=== PATIENT | female | born 1975 | race Caucasian/White ===

== ENCOUNTER 2016-06-11 09:35 | Emergency (ER) | payer SELFPAY ==
--- NOTE | ~2016-06-11 | EKG ---
PATIENT: PRATEEK HERNANDEZ UNIT #: [id number] Ventricular Rate: 69 BPM Atrial Rate: 69 BPM P-R Interval: 134 ms QRS Duration: 74 ms Q-T Interval: 390 ms QTC Calculation(Bezet): 417 ms P [place]: 39 degrees Calculated R [place]: 56 degrees Calculated T [place]: 34 degrees Diagnosis Line: Normal sinus rhythm with sinus arrhythmia Diagnosis Line: Normal ECG Diagnosis Line: No previous ECGs available Diagnosis Line: Confirmed by MARIE MCMILLAN MD ([id number]) on 06/13/2016 Diagnosis Line: 5:35:46 PM INTERPRETING MD: DEYANIRA HANSON
--- NOTE | ~2016-06-11 | CR72 ---
[facility]. [facility] A Service of [facility] & [facility] RADIOLOGY TEXT RESULTS PATIENT: PRATEEK HERNANDEZ LOCATION: SED : 79 UNIT #: [id number] AGE: [address]: Juan Pablo Mesa MD SEX: F ORDER DR: [id number] [address] [address] [id number] E MR#: [id number] Acc #: [id number] NAME: PRATEEK HERNANDEZ : 1975 SEX: F STUDY DATE/TIME: 06/11/2016 9:23 UNIT: SED ROOM: STUDY DESCRIPTION: CR Chest Single View Portable Attending Physician: Juan Pablo Mesa M.D. Ordering Physician: Juan Pablo Mesa M.D. MEDICAL IMAGING REPORT This report is preliminary unless electronic signature is present. EXAM Portable chest. HISTORY Chest pain, 2 weeks, going into left shoulder. FINDINGS A portable view of the chest was obtained. The heart size and vascularity are normal, and the lungs are clear. The bones are unremarkable. IMPRESSION No active disease. Dictated by... Paddy Dennis M.D. THIS IS AN ELECTRONICALLY VERIFIED REPORT Paddy Dennis M.D. at 06/11/2016 4:54 PM Itz TD: 06/11/2016 12:46 JOB #: [id number] MEDICAL IMAGING REPORT
[~2016-06-11 09:35] MED LIST: NO MEDICATIONS
[2016-06-20] MEDS ORDERED: MOTRIN IB200 M1 PO (12:31)
== END 2016-06-11 09:56 | disposition home or self-care (01) ==
LOC: SED 09:35
DX: M25.512 Pain in left shoulder (principal); R20.9 Unspecified disturbances of skin sensation; Z90.49 Acquired absence of other specified parts of digestive tract; Z98.51 Tubal ligation status
CPT/HCPCS: 71010; 93005; 96372; 99283; J1885

== ENCOUNTER 2016-06-20 12:59 | Emergency (ER) | payer SELFPAY ==
--- NOTE | ~2016-06-20 | CR229 ---
[facility]. [facility] A Service of [facility] & [facility] RADIOLOGY TEXT RESULTS PATIENT: PRATEEK HERNANDEZ LOCATION: SED : 79 UNIT #: [id number] AGE: [address]: Sushila Puri APRN SEX: F ORDER DR: [id number] [place] [id number] E MR#: [id number] Acc #: [id number] NAME: PRATEEK HERNANDEZ : 1975 SEX: F STUDY DATE/TIME: 06/20/2016 12:55 UNIT: SED ROOM: STUDY DESCRIPTION: CR Shoulder Min 2 View Lt Attending Physician: Sushila Puri A.P.R.N. Referring Physician: Sushila Puri A.P.R.N. Ordering Physician: Sushila Puri A.P.R.N. Primary Care Physician: No Primary Care Physician MEDICAL IMAGING REPORT This report is preliminary unless electronic signature is present. EXAM Left shoulder 3 views 06/20/2016 INDICATIONS 40-year-old female with left shoulder pain for 3 weeks. No injury. COMPARISON STUDIES No comparisons. FINDINGS There is no fracture or dislocation. Joint spaces are preserved. Soft tissue structures are unremarkable. IMPRESSION Negative. Dictated by... Stoney Luna M.D. THIS IS AN ELECTRONICALLY VERIFIED REPORT Stoney Luna M.D. at 06/24/2016 8:37 AM KAZ/yong TD: 06/20/2016 17:43 JOB #: [id number] MEDICAL IMAGING REPORT
[~2016-06-20 12:59] MED LIST changes: +MOTRIN IB200 M1 PO
== END 2016-06-20 14:13 | disposition home or self-care (01) ==
LOC: SED 12:59
DX: S46.012A Strain of muscle(s) and tendon(s) of the rotator cuff of left shoulder, initial encounter (principal); F17.210 Nicotine dependence, cigarettes, uncomplicated; Z98.890 Other specified postprocedural states; Z98.51 Tubal ligation status; X58.XXXA Exposure to other specified factors, initial encounter; Y92.9 Unspecified place or not applicable
CPT/HCPCS: 73030; 96372; 99283; J1030; J1885